=== PATIENT | female | born 1965 | race Caucasian/White ===

== ENCOUNTER → 2020-10-08 | Outpatient (CLI) | payer BC ==
--- NOTE | 2020-10-08 12:20 | REPVR ---
PROCEDURE INFORMATION: Exam: MR Pelvis Without Contrast, Sacrum Exam date and time: 10/08/2020 11:10 AM Age: 55 years old Clinical indication: Pain; Other: Spondylosis, lumbar wan, R/O sacral spinal stenosis TECHNIQUE: Imaging protocol: Magnetic resonance images of the pelvis without intravenous contrast. Exam focused on the sacrum. COMPARISON: No relevant prior studies available. FINDINGS: Bones/joints: There is a transitional lumbosacral vertebra most consistent with a partially lumbarlised S1. There is a diminutive S1-S2 disc space. There is a small bulge with an annular fissure without mass effect. There are mild facet joint degenerative changes. The central canal neural are compromised. The sacroiliac joints are normally aligned. There is no fluid or significant degenerative changes the SI joints. Soft tissues: Unremarkable. IMPRESSION: There is no central stenosis in the sacral spine Electronically signed by: Josh Mary On 10/08/2020 12:20:07 PM
== END ==
LOC: M RAD 09:34
PROVIDERS: ATTEND Orthopaedic Surgery
DX: M47.896 Other spondylosis, lumbar region (principal)